=== PATIENT | female | born 1970 | race Caucasian/White ===

== ENCOUNTER 2021-02-28 09:28 | Outpatient (REF) | payer MEDICARE, SELFPAY | END 2021-02-28 09:29 | disposition home or self-care (01) | LOC: HO.SCI 09:28 | DX: Z13.89 Encounter for screening for other disorder (principal) ==

== ENCOUNTER 2021-04-11 07:44 | Outpatient (REF) | payer MEDICARE, MEDICAID, SELFPAY ==
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
== END 2021-04-11 07:45 | disposition home or self-care (01) ==
LOC: HO.MRI 07:44
PROVIDERS: Visit Provider Psychiatry & Neurology Neurology
DX: G93.49 Other encephalopathy (principal)
CPT/HCPCS: 70551